=== PATIENT | male | born 1970 | race Caucasian/White ===

== ENCOUNTER 2020-11-17 10:37 | Emergency (ER) | payer BC ==
[~2020-11-17] VITALS: Ht 167.6 cm; Wt 93.0 kg
[2020-11-17 10:40] VITALS: BP_SYST 145
[2020-11-17] MEDS ORDERED: KETOROLAC TROMETHAMINE 30 MG VIAL IVP ONE (11:00)
[2020-11-17] MEDS ORDERED: NACL 0.9% 1,000 ML IV ONE (11:00)
--- NOTE | 2020-11-17 11:05 | NUR ---
Pt walked in to ER with c/o abdominal and flank pain 10/10 x2 hours. Reports n/v, v/s stable, pt is afebrile. Currently sitting at bedside, no distress noted.
--- NOTE | 2020-11-17 11:10 | NUR ---
ER Dr. Jones at bedside examining patient.
[2020-11-17] MEDS ORDERED: KETOROLAC TROMETHAMINE 30 MG VIAL ONE (11:15)
--- NOTE | 2020-11-17 11:15 | NUR ---
# 20 gauge angiocath placed to LAC. Use of asceptic technique. Opsite placed over site. Blood return noted. Blood for lab drawn from site. Flushed with 10 cc of normal saline. No evidence of infiltration noted. Patient tolerated well.
[2020-11-17 11:36] LABS: BASOPHILS # (AUTO) 0.1 K/uL (0.0-0.2); EOSINOPHILS # (AUTO) 0.7 K/uL (0.0-0.4); EOSINOPHILS % (AUTO) 7.9 % (0.0-4.0); HEMATOCRIT 45.5 % (36-54); HEMOGLOBIN 15.2 g/dL (14.0-18.0); LYMPHOCYTES # (AUTO) 2.5 K/uL (1.0-5.5); LYMPHOCYTES % (AUTO) 30.3 % (20.5-51.5); MEAN CORPUSCULAR HEMOGLOBIN 30 pg (27-31); MEAN CORPUSCULAR HGB CONC 33 % (32-36); MEAN CORPUSCULAR VOLUME 89 fL (79.0-98.0); MONOCYTES # (AUTO) 0.5 K/uL (0.0-1.0); MONOCYTES % (AUTO) 6.4 % (1.7-9.3); NEUTROPHILS # (AUTO) 4.6 K/uL (1.8-7.7); NEUTROPHILS % (AUTO) 54.4 % (40.0-70.0); PLATELET COUNT (AUTO) 228 K/uL (130-430); RED BLOOD CELL COUNT(AUTO) 5.14 MIL/uL (4.2-6.2); RED CELL DISTRIBUTION WIDTH 12.9 % (9.0-15.0); WHITE BLOOD COUNT (AUTO) 8.4 K/uL (4.8-10.8)
[2020-11-17 12:10] LABS: CREATININE 1.22 mg/dL (0.55-1.30); POTASSIUM 3.9 mmol/L (3.5-5.1)
[2020-11-17 12:26] LABS: ALBUMIN 4.3 g/dL (3.4-4.8); TOTAL BILIRUBIN 0.7 mg/dL (0.0-1.0)
--- NOTE | 2020-11-17 12:43 | NUR ---
IVF completed. Saline flush 5ml. Pt in [facility] resting well.
--- NOTE | 2020-11-17 13:00 | NUR ---
Patient given written and verbal discharge instructions and verbalizes understanding. ER MD discussed with patient the results and treatment provided. Patient in stable condition. ID arm band removed. IV catheter removed intact and dressing applied, no active bleeding. Rx of Julian and Naproxen given. Patient educated on pain management and to follow up with PMD. Pain Scale 0. Opportunity for questions provided and answered. Medication side effect fact sheet provided.
[2020-11-17 13:01] VITALS: BP_SYST 145
== END 2020-11-17 13:00 | disposition home or self-care (01) ==
LOC: SED 10:37
DX: N20.0 Calculus of kidney (principal)
CPT/HCPCS: 36415; 74176; 76376; 80053; 85025; 96361; 96374; 99284; J1885; J7030